=== PATIENT | female | born 1985 | race Asian ===

== ENCOUNTER 2017-09-16 11:24 | Emergency (ER) | payer MEDICAID ==
[~2017-09-16] VITALS: Ht 149.9 cm; Wt 50.8 kg
[~2017-09-16 11:24] MED LIST: APAP/HYDROCODON1 T13 PO; COL100 PO; ZOF4 PO
[2017-09-16 11:34] VITALS: Ht 149.9 cm; Wt 50.8 kg
[2017-09-16 13:08] VITALS: BP 136/88
== END 2017-09-16 13:08 | disposition home or self-care (01) ==
LOC: ED 11:24
DX: J02.9 Acute pharyngitis, unspecified (principal); F17.210 Nicotine dependence, cigarettes, uncomplicated
CPT/HCPCS: J1100; Q0092

== ENCOUNTER 2017-12-07 11:15 | Emergency (ER) | payer SELFPAY ==
[~2017-12-07] VITALS: Ht 149.9 cm; Wt 50.8 kg
[2017-12-07 11:17] VITALS: Ht 149.9 cm; Wt 50.8 kg
[2017-12-07 14:07] VITALS: BP 114/81
== END 2017-12-07 14:07 | disposition home or self-care (01) ==
LOC: ED 11:15
DX: S82.62XA Displaced fracture of lateral malleolus of left fibula, initial encounter for closed fracture (principal); W19.XXXA Unspecified fall, initial encounter; Y93.89 Activity, other specified; Y92.89 Other specified places as the place of occurrence of the external cause; Y99.8 Other external cause status

== ENCOUNTER 2020-08-25 16:44 | Emergency (ER) | payer OTHER ==
[~2020-08-25] VITALS: Ht 152.4 cm; Wt 53.1 kg
[2020-08-25 16:57] VITALS: Ht 152.4 cm; Wt 53.1 kg
[2020-08-25 17:35] LABS: BASOPHIL % 1.3 % (0.2-1.3); PLATELET COUNT 373 x10^3mcL (179-408)
[2020-08-25 17:40] LABS: RED CELL DISTRIBUTION WIDTH 15.2 % (12.3-17.7)
[2020-08-25 17:45] LABS: CALCIUM 9.2 mg/dL (8.5-10.1); CARBON DIOXIDE 26.4 mmol/L (21-32); CHLORIDE SERUM 104 mmol/L (98-107); CREATININE SERUM 0.6 mg/dL (0.6-1.0); GFR1 > 60 mL/min; GLUCOSE SERUM 99 mg/dL (74-106); POTASSIUM SERUM 3.6 mmol/L (3.5-5.1); SODIUM SERUM 139 mmol/L (136-145)
[2020-08-25 17:50] LABS: ALBUMIN 4.2 g/dL (3.4-5.0); ALKALINE PHOSPHATASE 73 U/L (46-116); ALT/SGPT 30 U/L (14-59); AST/SGOT 17 U/L (15-37); BILIRUBIN TOTAL 0.2 mg/dL (0.20-1.00); TOTAL PROTEIN, SERUM 7.9 g/dL (6.4-8.2)
[2020-08-25 18:32] VITALS: BP 129/73
== END 2020-08-25 18:32 | disposition home or self-care (01) ==
LOC: ED 16:44
PROVIDERS: Emergency Medicine
DX: R53.1 Weakness (principal); E86.0 Dehydration; Z20.828 Contact with and (suspected) exposure to other viral communicable diseases